=== PATIENT | female | born 1980 | race Caucasian/White ===

== ENCOUNTER 2016-04-16 14:25 | Emergency (ER) | payer OTHER | END 2016-04-16 17:05 | disposition home or self-care (01) | LOC: FER 14:25 | DX: R51 Headache (principal); R11.0 Nausea; I10 Essential (primary) hypertension; Z91.013 Allergy to seafood; Z79.899 Other long term (current) drug therapy | CPT/HCPCS: J1885; J2765; J2800 ==

== ENCOUNTER → 2021-06-12 | Day surgery (SDC) | payer OTHER ==
[~2021-06-12] VITALS: Ht 172.7 cm; Wt 84.1 kg
[~2021-06-12] MED LIST: 24HOUR ALLERGY10 MG PO; BUSPAR5 MG PO; CARAFATE1 GM PO; CETIRIZINE HCL10 MG PO; COLACE100 MG PO; CYMBALTA 30MG C30 MG PO; DULOXETINE HCL60 MG PO; ELAVIL50 MG PO; EPIPEN0.3 MG/0.3 IM; FAMOTIDINE40 MG PO; FLONASE ALLER15.8 ML; GLUCOPHAGE1000 MG PO; IBUPROFEN800 M1 PO; IMITREX100 MG PO; LIPITOR20 MG PO; NORCO 5-325 TA1 EACH PO; ONDANSETRON ODT4 MG PO; PANTOPRAZOLE SO40 MG PO; PERCOCET 5-3251 EACH PO; PRINIVIL20 MG PO; PROTONIX 40MG T40 MG PO; SINGULAIR10 MG PO; TOPAMAX50 MG PO; TOPROL XL 50 MG50 MG PO; TRULICITY1.5 MG/0.5 PO; VENTOLIN (2.5 MG/3 M INH; ZANTAC150 MG PO; ZINC50 M1 PO; ZOCOR20 MG PO; ZOFRAN4 MG PO
[2021-06-12 07:35] LABS: HCG (URINE) SCREEN NEGATIVE (NEGATIVE)
[2021-06-12 07:51] LABS: HCT 37.9 % (37.0-47.0); HGB 11.7 g/dl (12.5-16.0); MCH 25.8 pg (25.0-31.0); MCHC 30.9 g/dL (32.0-36.0); MCV 83.7 fL (78.0-100.0); MPV 11.2 fL (6.0-9.5); RBC 4.53 M/uL (4.20-5.40); RDW 20.3 % (11.5-14.0); WBC 9.2 K/uL (4.0-10.5)
[2021-06-12 08:06] LABS: ALBUMIN 3.5 g/dL (3.4-5.0); BILIRUBIN - TOTAL 0.3 mg/dL (0.2-1.0); BUN/CREAT RATIO (CALC) 20.9 RATIO; CREATININE 0.67 mg/dL (0.51-0.95); GLOBULIN (CALCULATION) 3.7 g/dL; TOTAL PROTEIN 7.2 g/dL (6.4-8.2)
== END | disposition home or self-care (01) ==
LOC: FAS 06:49
PROVIDERS: Obstetrics & Gynecology
DX: D25.2 Subserosal leiomyoma of uterus (principal); N93.9 Abnormal uterine and vaginal bleeding, unspecified; D64.9 Anemia, unspecified; E78.5 Hyperlipidemia, unspecified; I10 Essential (primary) hypertension; J45.909 Unspecified asthma, uncomplicated; K21.9 Gastro-esophageal reflux disease without esophagitis; E11.9 Type 2 diabetes mellitus without complications; Z91.013 Allergy to seafood; Z79.84 Long term (current) use of oral hypoglycemic drugs; Z79.899 Other long term (current) drug therapy; Z72.89 Other problems related to lifestyle; Z80.3 Family history of malignant neoplasm of breast
CPT/HCPCS: 36415; 80053; 84703; 86850; 86900; 86901; 93005; J0690; J1100; J1170; J2250; J2405; J2704; J3010; J7120

== ENCOUNTER 2021-09-02 10:04 | Day surgery (SDCO) | payer OTHER ==
[~2021-09-02] VITALS: Ht 172.7 cm; Wt 84.5 kg
[2021-09-02 11:10] LABS: BASOPHIL 0.2 % (0-2); EOSINOPHIL 0 % (0-5); HCT 40.5 % (37.0-47.0); LYMPHOCYTE 9.9 % (15-48); MCH 27.3 pg (25.0-31.0); MCHC 32.1 g/dL (32.0-36.0); MCV 85.1 fL (78.0-100.0); MONOCYTE 9.5 % (0-12); MPV 11.3 fL (6.0-9.5); NRBC 0; PLT 277 K/uL (150-400); RBC 4.76 M/uL (4.20-5.40); RDW 14.4 % (11.5-14.0); WBC 16.6 K/uL (4.0-10.5)
[2021-09-02 11:20] LABS: CORONAVIRUS 2019 SARS-COV-2 NEGATIVE (NEGATIVE); INFLUENZA A NAA NEGATIVE (NEGATIVE)
[2021-09-02 11:30] LABS: BUN/CREAT RATIO (CALC) 14.7 RATIO; CREATININE 0.68 mg/dL (0.51-0.95); POTASSIUM 3.5 mmol/L (3.5-5.1)
[2021-09-02 12:18] LABS: LACTIC ACID 1.4 mmol/L (0.4-1.9)
[2021-09-02 12:24] LABS: BILIRUBIN NEGATIVE (NEGATIVE); BLOOD 2+ Ery/uL (NEGATIVE); COLOR YELLOW (YELLOW); GLUCOSE (U) NORMAL (NORMAL); LEUKOCYTES 2+ Leu/uL (NEGATIVE); NITRITE POSITIVE (NEGATIVE); PROTEIN 1+ mg/dL (NEGATIVE); SPECIFIC GRAVITY >=1.030 (1.001-1.030); UROBILINOGEN 0.2 mg/dL (0.2-1.0); pH 5.5 (5.0-9.0)
[2021-09-02 12:28] LABS: CLARITY CLOUDY (CLEAR)
[2021-09-02 12:30] LABS: URINARY WBC TNTC
[2021-09-02 12:31] LABS: BACTERIA 3+
[2021-09-02] MEDS ORDERED: BUSPAR5 MG PO (16:13)
[2021-09-03 06:59] LABS: BASOPHIL 0.3 % (0-2); EOSINOPHIL 0.1 % (0-5); HCT 35.5 % (37.0-47.0); LYMPHOCYTE 19.7 % (15-48); MCH 27.1 pg (25.0-31.0); MCV 87.4 fL (78.0-100.0); MONOCYTE 11.3 % (0-12); MPV 11.4 fL (6.0-9.5); NRBC 0; PLT 215 K/uL (150-400); RBC 4.06 M/uL (4.20-5.40); RDW 14.6 % (11.5-14.0); WBC 12.4 K/uL (4.0-10.5)
[2021-09-03 07:18] LABS: BUN/CREAT RATIO (CALC) 10.3 RATIO; CREATININE 0.68 mg/dL (0.51-0.95); POTASSIUM 3.3 mmol/L (3.5-5.1)
[2021-09-03] MEDS ORDERED: LEVAQUIN750 MG PO (11:16)
[2021-09-03] MEDS ORDERED: IBUPROFEN400 MG PO (11:21)
== END 2021-09-03 14:19 | disposition home or self-care (01) ==
LOC: FER 10:04 → FMS 15:20
PROVIDERS: Emergency Medicine; ADMIT Allergy & Immunology Allergy
DX: A41.9 Sepsis, unspecified organism (principal); N12 Tubulo-interstitial nephritis, not specified as acute or chronic; N28.89 Other specified disorders of kidney and ureter; E11.9 Type 2 diabetes mellitus without complications; I10 Essential (primary) hypertension; J45.909 Unspecified asthma, uncomplicated; Z20.822 Contact with and (suspected) exposure to COVID-19
CPT/HCPCS: 36415; 71045; 80048; 81001; 83605; 85025; 87040; 87076; 87088; 87186; 94640; G0378; J0696; J2405; J7030; J7120; Q9967; U0002